=== PATIENT | female | born 1990 | race African-American/Black ===

== ENCOUNTER 2022-08-03 15:33 | Emergency (ER) | payer OTHER ==
[2022-08-03 17:40] LABS: Basophils # (A) 0.1 k/uL (0-0.2); Basophils % (A) 1 %; Eosinophils # (A) 0.1 k/uL (0-0.7); Eosinophils % (A) 2 %; HCT 36.4 % (34.0-46.0); HGB 11.5 gm/dL (11.4-16.0); Lymphocytes # (A) 1.6 k/uL (1.0-4.8); Lymphocytes % (A) 32 %; MCH 24.9 pg (25.0-35.0); MCHC 31.5 g/dL (31.0-37.0); MCV 78.9 fL (80.0-100.0); Mean Platelet Volume 9.4; Monocytes # (A) 0.2 k/uL (0-1.0); Monocytes % (A) 5 %; Neutrophils # (A) 2.8 k/uL (1.3-7.7); Neutrophils % (A) 58 %; Platelet Count 188 k/uL (150-450); RBC 4.61 m/uL (3.80-5.40); RDW 14.3 % (11.5-15.5); WBC 4.8 k/uL (3.8-10.6)
[2022-08-03 17:52] LABS: Albumin 3.9 g/dL (3.5-5.0); Calcium 8.8 mg/dL (8.4-10.2); Magnesium 1.8 mg/dL (1.6-2.3); Total Bilirubin 0.5 mg/dL (0.2-1.3); Total Protein 6.8 g/dL (6.3-8.2)
[2022-08-03 18:23] VITALS: RESP 18
[2022-08-03] MEDS ORDERED: NITROGLYCERIN SL TABS 0.4 MG TAB SUBLINGUAL STA (18:28)
[2022-08-03] MEDS ORDERED: ACETAMINOPHEN TAB 325 MG TAB PO STA (18:28)
[2022-08-03] MEDS ORDERED: lisinopriL 10 MG TAB PO STA (18:28)
--- NOTE | 2022-08-03 18:44 | XR ---
EXAMINATION TYPE: XR chest 2V DATE OF EXAM: 08/03/2022 6:08 PM COMPARISON: None TECHNIQUE: XR chest 2V Frontal and lateral views of the chest. CLINICAL INDICATION:Female, 32 years old with history of Chest Pain; FINDINGS: Lungs/Pleura: Airspace opacities projecting over the spine on lateral view .There is no evidence of p leural effusion, or pneumothorax. Pulmonary vascularity: Unremarkable. Heart/mediastinum: Cardiomediastinal silhouette is unremarkable. Musculoskeletal: No acute osseous pathology. IMPRESSION: Airspace opacities projecting over the spine on lateral view, correlate for pneumonia.
[2022-08-03 19:01] LABS: Partial Thromboplastin Time 24.9 sec (22.0-30.0); Prothrombin Time 10.9 sec (9.0-12.0)
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
[2022-08-03 19:53] VITALS: BP 173/107; PULSE 88; TEMP 98.1
== END 2022-08-03 20:01 | disposition home or self-care (01) ==
LOC: EC 15:33
DX: I10 Essential (primary) hypertension (principal); F17.290 Nicotine dependence, other tobacco product, uncomplicated; Z79.899 Other long term (current) drug therapy
CPT/HCPCS: 36415; 71046; 80053; 83735; 84484; 85025; 85610; 85730; 93005; 99285

== ENCOUNTER 2024-01-01 05:38 | Emergency (ER) | payer OTHER ==
[2024-01-01] MEDS: MORPHINE SULFATE 4 MG/ML SYRINGE IVP STA (06:09)
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
[2024-01-01 06:56] LABS: Basophils % (A) 1 %; Eosinophils # (A) 0.1 k/uL (0-0.7); Eosinophils % (A) 2 %; HCT 37.7 % (34.0-46.0); Lymphocytes # (A) 1.7 k/uL (1.0-4.8); Lymphocytes % (A) 39 %; MCH 26.7 pg (25.0-35.0); MCHC 31.8 g/dL (31.0-37.0); MCV 83.9 fL (80.0-100.0); Mean Platelet Volume 8.7; Monocytes # (A) 0.2 k/uL (0-1.0); Monocytes % (A) 5 %; Neutrophils # (A) 2.2 k/uL (1.3-7.7); Neutrophils % (A) 51 %; Platelet Count 202 k/uL (150-450); RBC 4.49 m/uL (3.80-5.40); RDW 14.8 % (11.5-15.5); WBC 4.4 k/uL (3.8-10.6)
[2024-01-01] MEDS: LABETALOL 5 MG/ML VIAL MDV IVP STA (07:03)
[2024-01-01 07:18] LABS: INR 1.1 (<1.2); Prothrombin Time 11.7 sec (10.0-12.5)
[2024-01-01 07:45] LABS: ALT 27 U/L (4-34); AST 58 U/L (14-36); African American GFR (CKD) 77 (>60 ml/min/1.73 sqM); Albumin 4.4 g/dL (3.5-5.0); Alkaline Phosphatase 67 U/L (38-126); Anion Gap 11 mmol/L; Blood Urea Nitrogen 8 mg/dL (7-17); Calcium 8.6 mg/dL (8.4-10.2); Carbon Dioxide 23 mmol/L (22-30); Chloride 107 mmol/L (98-107); Glucose 105 mg/dL (74-99); Non-African American GFR(CKD) 67 (>60 ml/min/1.73 sqM); Potassium 3.5 mmol/L (3.5-5.1); Sodium 141 mmol/L (137-145); Total Protein 7.4 g/dL (6.3-8.2)
[2024-01-01] MEDS: ENALAPRILAT 1.25 MG/ML 1 ML VIAL IVP STA (08:36)
[2024-01-01 10:01] VITALS: RESP 20
[2024-01-01 11:03] VITALS: BP 134/83; PULSE 73; TEMP 98.1
== END 2024-01-01 11:03 | disposition home or self-care (01) ==
LOC: EC 05:38
DX: R68.84 Jaw pain (principal); R07.9 Chest pain, unspecified; I10 Essential (primary) hypertension; F17.290 Nicotine dependence, other tobacco product, uncomplicated
CPT/HCPCS: 36415; 93005; 85379; 80053; 83735; 84484; 85025; 85610; 85730; 81025; 70100; 71046; 99285; 96374; 96375 ×2; J2270; J1920